=== PATIENT | female | born 1955 | race Caucasian/White ===

== ENCOUNTER 2019-03-16 08:40 | Day surgery (SDC) | payer OTHER ==
[2019-03-16] MEDS ORDERED: LIDOCAINE 4% SOLUTION 50 ML BTL (09:41)
[2019-03-16] MEDS ORDERED: LABETALOL HCL 20MG INJ (09:45)
[2019-03-16] MEDS ORDERED: MIDAZOLAM 1 MG/ML 2 ML INJ (10:29)
[2019-03-16] MEDS ORDERED: FENTAnyl 50 MCG/ML VIAL (10:29)
== END 2019-03-16 17:50 | disposition home or self-care (01) ==
LOC: GIL 08:40
DX: Z12.11 Encounter for screening for malignant neoplasm of colon (principal); D12.2 Benign neoplasm of ascending colon; K29.50 Unspecified chronic gastritis without bleeding; K20.8 Other esophagitis; I10 Essential (primary) hypertension
CPT/HCPCS: 43239; 88305; 88312; 88313